=== PATIENT | female | born 1955 | race Caucasian/White ===

== ENCOUNTER → 2018-04-23 | Day surgery (SDC) | payer OTHER ==
[~2018-04-23] MED LIST: ALEVE220 MG PO; NORCO 5-325 TA1 EACH PO
--- NOTE | 2018-04-29 08:43 | OP ---
[address] [address] OPERATIVE REPORT Name: ANDREW WATSON Room: [facility]#: [id number] Admission: 04/23/18 Attend Phys: Roger Pressley II Discharge: Date of : 59 Report #: [id number] THIS REPORT FOR: //name// CC: [facility] physician/PCP Roger Pressley DATE OF SERVICE: 04/23/2018 PREOPERATIVE DIAGNOSIS: Right distal radius fracture, greater than 3 parts. POSTOPERATIVE DIAGNOSIS: Right distal radius fracture, greater than 3 parts. PROCEDURE: ORIF right distal radius fracture, greater than 3 parts. SURGEON: Roger Pressley II, DO [employer]OCK PLAN ADMINISTRATOR: JOY Bo ANESTHESIA: Per operative record. ESTIMATED BLOOD LOSS: Minimal. ANTIBIOTICS: Per operative record. DRAINS: None. COMPLICATIONS: None. CONDITION: Stable to recovery room. IMPLANTS USED: Aldie distal radius plate with appropriate locking and nonlocking screws. DESCRIPTION OF PROCEDURE: The patient was taken to the operative suite and placed supine on operative table, given appropriate anesthesia. The patient's affected wrist was sterilely prepped and draped in supine position with well-padded tourniquet applied to the upper arm. This was inflated to 250 mmHg after Esmarch exsanguination for duration of procedure. The arm was sterilely prepped and draped. Surgery began by an incision of the flexor carpi radialis tendon. It was carried down to the subcutaneous tissues. The tendon was then retracted radially and the subcuticular layer was then split proximal to distal. The pronator was reflected off of the volar aspect of the radius. This was shown to have a comminuted intra-articular distal radius fracture with dorsal angulation. Utilizing C-arm an open reduction was performed of this fracture to near anatomic fashion with hinduism of the volar tilt as well as the radial inclination. Once this had been performed, a K-wire [place] [id number] OPERATIVE REPORT Name: ANDREW WATSON GIL Room: [facility].#: [id number] Admission: 04/23/18 Attend Phys: Roger Pressley II Discharge: Date of : 59 Report #: [id number] radial styloid to hold this in appropriate position. The plate was then affixed to the volar aspect of the radius and appropriate locking and nonlocking screws then applied to secure the fracture in appropriate anatomic alignment. Once again, final images taken with the C-arm in both AP and lateral direction showing excellent anatomic reduction of the fracture. The wound was then copiously irrigated. Pronator was reflected back over the plate and secured utilizing 2-0 Vicryl. The subcutaneous layer was closed with 2-0 Vicryl and a running 3-0 Monocryl with Dermabond. A sterile dressing and splint were applied. The multiple fragments were placed back into near anatomic position with an open reduction. A final x-ray was taken with the splint in place showing excellent reduction. The patient was transferred to the recovery room in stable condition. Counts were correct at the end of operation. <ELECTRONICALLY SIGNED> By: Roger Pressley II, DO 04/29/18 [id number] Pressley II, DO /nt
== END | disposition home or self-care (01) ==
LOC: M.SUR 11:04
DX: S52.571A Other intraarticular fracture of lower end of right radius, initial encounter for closed fracture (principal); Z79.891 Long term (current) use of opiate analgesic; X58.XXXA Exposure to other specified factors, initial encounter; Y93.89 Activity, other specified; Y92.89 Other specified places as the place of occurrence of the external cause; Y99.8 Other external cause status